=== PATIENT | female | born 1975 | race Caucasian/White ===

== ENCOUNTER 2023-02-21 16:00 | Emergency (ER) | payer OTHER ==
[~2023-02-21] VITALS: Ht 175.3 cm; Wt 68.0 kg
[2023-02-22] MEDS ORDERED: KETO10TA2 PO (03:20)
== END 2023-02-22 02:19 | disposition home or self-care (01) ==
LOC: ER 16:00
DX: D25.9 Leiomyoma of uterus, unspecified (principal); N83.209 Unspecified ovarian cyst, unspecified side; Z20.822 Contact with and (suspected) exposure to COVID-19

== ENCOUNTER 2023-02-24 16:24 | Emergency (ER) | payer OTHER ==
[~2023-02-24] VITALS: Ht 175.3 cm; Wt 72.6 kg
[~2023-02-24 16:24] MED LIST: KETO10TA2 PO
== END 2023-02-24 21:49 | disposition home or self-care (01) ==
LOC: ER 16:24
PROVIDERS: Nurse Practitioner Family
DX: R10.11 Right upper quadrant pain (principal); R16.0 Hepatomegaly, not elsewhere classified